=== PATIENT | male | born 1950 | race Asian ===

== ENCOUNTER 2019-05-20 20:05 | Emergency (ER) | payer OTHER ==
[~2019-05-20] VITALS: Ht 170.2 cm; Wt 77.1 kg
[2019-05-20 20:39] VITALS: Ht 170.2 cm; Wt 77.1 kg
[2019-05-20 21:24] LABS: CALCIUM 9.2 mg/dL (8.5-10.1); CARBON DIOXIDE 30.3 mmol/L (21-32); CREATININE SERUM 1.5 mg/dL (0.7-1.3); POTASSIUM SERUM 4.1 mmol/L (3.5-5.1)
[2019-05-20 21:29] LABS: ALBUMIN 3.9 g/dL (3.4-5.0); BILIRUBIN TOTAL 0.6 mg/dL (0.20-1.00)
[2019-05-20 21:31] LABS: TOTAL PROTEIN, SERUM 8.6 g/dL (6.4-8.2)
[2019-05-20 21:52] LABS: BASOPHIL % 0.3 % (0-2); PLATELET COUNT 201 x10^3mcL (130-400); RED CELL DISTRIBUTION WIDTH 13.7 % (11.5-14.5)
[2019-05-21 01:12] LABS: UA SPECIFIC GRAVITY 1.015 (1.005-1.035); microscopic required? YES; urine erythrocyte TRACE (NEGATIVE)
[2019-05-21 01:29] VITALS: BP 146/72
== END 2019-05-21 01:29 | disposition home or self-care (01) ==
LOC: ED 20:05
PROVIDERS: Specialist
DX: N13.2 Hydronephrosis with renal and ureteral calculous obstruction (principal); N28.9 Disorder of kidney and ureter, unspecified; I10 Essential (primary) hypertension; E78.5 Hyperlipidemia, unspecified
CPT/HCPCS: J1885; J2405; J3010; J7030